=== PATIENT | female | born 1940 | race Caucasian/White ===

== ENCOUNTER 2020-03-22 18:23 | Inpatient (IN) | payer MEDICARE, BC ==
[~2020-03-22] VITALS: Ht 167.6 cm; Wt 43.4 kg
[2020-03-22] MEDS ORDERED: FENOFIBRATE160 MG PO (18:41)
[2020-03-22] MEDS ORDERED: METOPROLOL TART25 MG PO (18:42)
[2020-03-22] MEDS ORDERED: FUROSEMIDE40 MG PO (18:43)
[2020-03-22] MEDS ORDERED: SINGULAIR10 MG PO (18:44)
[2020-03-22] MEDS ORDERED: SYNTHROID88 MCG PO (18:44)
[2020-03-22] MEDS ORDERED: VITAMIN D5000 UNI1 PO (18:47)
[2020-03-22] MEDS ORDERED: RESTASIS EYE DR30 EA EACH EYE (18:54)
[2020-03-22 20:10] VITALS: BP 99/57
[2020-03-23 05:57] VITALS: BP 99/57
[2020-03-23 09:19] VITALS: BP 108/45
[2020-03-23 10:08] VITALS: BP 108/45
[2020-03-23 14:40] LABS: BASOPHILS 0.4 % (0-2); EOSINOPHILS 1.4 % (0-7); HEMATOCRIT 38.1 % (36.0-48.0); IMMATURE GRANULOCYTES 0.2 % (0-5); LYMPHOCYTES 9.7 % (15-50); MCH 28.5 pg (26.0-34.0); MCHC 31.5 g/dL (31.0-37.0); MCV 90.5 fL (80.0-100.0); MEAN PLATELET VOLUME 9.4 fL (7.4-10.4); MONOCYTES 9.7 % (2-11); NEUTROPHILS 78.6 % (40-80); PLATELET COUNT 340 10x3/uL (130-400); RBC 4.21 10x6/uL (4.00-5.40); RDW 13.3 % (11.5-14.5)
[2020-03-23 15:21] LABS: ALBUMIN 3.6 g/dL (3.4-5.0); ANION GAP 10.2 mmol/L (8-16); BILIRUBIN - TOTAL 0.58 mg/dL (0.2-1.3); CALCIUM 8.9 mg/dL (8.5-10.1); CARBON DIOXIDE 30.1 mmol/L (21.0-32.0); CHOL - HDL RATIO 3.1 ratio (2.3-4.1); CREATININE - SERUM 0.8 mg/dL (0.6-1.3); LDL-HDL RATIO 1.9 ratio (1.5-3.5); POTASSIUM - SERUM 3.3 mmol/L (3.5-5.1); PROTEIN - SERUM 6.9 g/dL (6.4-8.2); THYROID STIMULATING HORMONE 6.12 uIU/mL (0.36-3.74)
--- NOTE | 2020-03-23 16:28 | NUR ---
PT LAYING IN CHAIR LOOKING ABOVE HER WITH HANDS IN THE AIR. PT IS CONFUSED AND DISORIENTED. PT IS HAVING VISUAL HALLUCINATIONS. PT HAS NOT BEEN VERBAL THIS SHIFT. PT IS ON O2 AT 2 LPM. TOLERATING WELL. NO AGGRESSION NOTED. PT COMPLIANT WITH VITALS AND ASSESSMENT. CHAIR ALARM IN PLACE AND ACTIVE. WILL CONT PLAN OF CARE.
--- NOTE | 2020-03-23 19:50 | NUR ---
RECEIVED IN DAYROOM. SITTING CALMLY IN DAYROOM WITH PEERS AT HER SIDE. CALM AND COOPERATIVE WITH CARE AND ASSESSMENT. NO SIGNS OF AGGRESSION. REDIRECT AND REORIENT NEEDED. CONTINUES TO REST QUIETLY IN DAYROOM. CONTINUE PLAN OF CARE.
[2020-03-23 19:52] VITALS: BP 129/47
[2020-03-24 07:17] LABS: RAPID PLASMA REAGIN Non Reactive (Non Reactive)
[2020-03-24 08:13] LABS: BILIRUBIN NEGATIVE (NEGATIVE); GLUCOSE NEGATIVE (NEGATIVE); KETONE NEGATIVE (NEGATIVE); NITRITE POSITIVE (NEGATIVE); UROBILINOGEN NORMAL (NORMAL)
[2020-03-24 08:14] LABS: BACTERIA MANY /hpf (NEGATIVE); EPITHELIAL CELLS 0-5 /hpf (0-5); RED CELLS - URINE 0-5 /hpf (0-5); WHITE CELLS - URINE 25-50 /hpf (NEGATIVE)
[2020-03-24 08:36] VITALS: BP 118/63
--- NOTE | 2020-03-24 09:07 | PSY ---
PATIENT NAME:AG SAMUELS MEDICAL RECORD: [id number] : 42 LOCATION:[facility] Yoon6 ADMISSION DATE: 03/22/20 ACCOUNT: [id number] PSYCHIATRIC EVALUATION DATE OF EVALUATION: 03/23/20 IDENTIFYING DATA: The patient is 79 years old and she is admitted to the hospital on a voluntary basis. CHIEF COMPLAINT: Aggression. HISTORY OF PRESENT ILLNESS: The patient lives at home with her family. She has a history of dementia and has been aggressive with her family. Apparently, she has been having hallucinations. She is not fully oriented. She minimally interacts and she is almost nothing in the way of useful information. PAST MEDICAL HISTORY: Significant for hypothyroidism and hypertension. PAST PSYCHIATRIC HISTORY: Significant for dementia, which is clearly advanced. FAMILY HISTORY: Unknown. ALLERGIES: SULFA AND PENICILLIN. CURRENT MEDICATIONS: Include fenofibrate, metoprolol, furosemide, levothyroxine. SOCIAL HISTORY: The patient is single. She has a sister who is involved with her care. It is unknown if she has been in the past and she is not able to provide useful history. She denies drug or alcohol abuse and she denies smoking, which is probably correct or true, but she is so impaired, all of her responses to questions need to be checked with other sources. MENTAL STATUS EXAMINATION: The patient is awake, alert and oriented to person only. Her mood is flat. Her affect is constricted. Thought processes are very disorganized. Memory, concentration, and abstraction abilities are impaired and she denies that she would seek to harm herself or others as well as active psychotic symptoms. ASSETS: Supportive family members. LIABILITIES: Limited insight. DIAGNOSTIC IMPRESSION: AXIS I: Major neurocognitive disorder of the Alzheimer's type with behavioral disturbances. AXIS II: None. AXIS III: Hypertension, hypothyroidism, hyperlipidemia, chronic obstructive pulmonary disease. AXIS IV: Moderate. AXIS V: Global assessment of functioning is 30. PLAN: At this time, the patient is admitted to the hospital secondary to aggressive behavior associated with a dementing illness. She will be treated with both mood stabilizing and memory enhancing medications. Her long-term prognosis is guarded. TRANSINT:[id number] Voice Confirmation ID: [id number] DOCUMENT ID: [id number] NEW ESTRADA MD at 0907 CC: [id number] DICTATION DATE: 03/23/20 1627 CONFIDENTIAL SECRETARY: 03/23/202016 ADM IN [facility] [address] [facility], [facility]
--- NOTE | 2020-03-24 12:00 | NUR ---
Pt. sister Krupa called to get update on pts status. This nurse explained pt currently has uti from urine results. Invanz 1gm IM q [address] Osullivan. CXR ordered for SOB. CXR completed results pending at this time. pt on o2 at 3l via n/c per order. Pt sister thanked this nurse for update and provided favorite foods of pt. to help improve pts eating habits. Krupa stated pt likes, hamburgers, fries, pancakes, fruit and venkat. pudding." Sister also reported at home pt has to be reminded to eat." Info. reported to charge nurse and attending MD. Will cpoc.
--- NOTE | 2020-03-24 12:25 | NUR ---
NOTIFY DR. MATHIS IN REGARDS TO PT O2 SAT AT 91% ON 3 LPM. PT CONSTANTLY REMOVES O2 TUBING. STAFF REPLACES. UNABLE TO REDIRECT AND REORIENT. NEW ORDER: CHEST X-RAY. AND AWAITING ANTIBIOTIC ORDERS.
--- NOTE | 2020-03-24 12:38 | NUR ---
CALLED DR. JUDGE OFFICE ABOUT AN EYE GTT ORDER. SISTER WANTED TO KNOW DID WE REC'D THEM. NURSE CALLED TO OBTAIN SCRIPT. SHE STATED THAT THEY WANTED HER TO COME IN CAUSE SHE HADN'T BEEN IN OVER A YEAR OR SO. THEY TOOK A CALLBACK NUMBER AND ASKED FOR A LATER DATE. VERBALIZIED UNDERSTANDING.
--- NOTE | 2020-03-24 12:50 | NUR ---
NURSE SPOKE WITH HUMZA PARIS. SHE WANTED TO KNOW HOW SHE WAS DOING AND SHOULD WE COME GET HER SINCE SHE IS NOT WALKING AND NOT EATING. COULD I MAKE THE JUDGEMENT TO SEND HER HOME OR NOT. NURSE TOLD HER I COULD NOT MAKE THAT JUDGEMENT AND THAT THE DOCTOR WOULD HAVE TO MAKE THAT SAY. WE COULD DO WHAT WE CALL A A.M.A WHERE SHE COULD TAKE PT AGAINST MEDICAL ADVICE. SHE SAID SHE WANTED TO TALK TO THE DOCTOR. NURSE EXPLAINED THAT ITS SO EARLY IN THE ADMISSION THAT I WOULD GIVE HIM THE MESSAGE. SHE STATED SHE WOULD HAVE THE OTHER SISTER WOULD CALL AND SPEAK WITH US. NURSE VERBALIZIED UNDERSTANDING.
--- NOTE | 2020-03-24 13:13 | NUR ---
EYE GTT ORDER IS BEING FAXED OVER.
--- NOTE | 2020-03-24 13:39 | NUR ---
PREMA REID CALLED AND WANTED TO SPEAK WITH NURSE. NUMBER: [phone]. PASSCODE GIVEN. SHE INQUIRED HOW SHE WAS DOING, WHAT WAS GOING ON WITH THE UTI, AND WAS SHE EATING. NURSE EDUCATED HER ON HOW SHE WAS DOING. CONFUSED NOT UNDERSTANDING WHERE SHE IS OR ASKING FOR HER DOGS, SHE HAD TO HAVE MEDICATIONS PRIOR TO ADMISSION AND UPON ADMISSION FOR AGRESSION AND SOMETIMES IT TAKES SEVERAL DAYS TO LEAVE THE SYSTEM DEPENDING ON SIZE AND AGE. NURSE EXPLAINED THAT WE COULD NOT FORCE HER TO EAT BUT WE DO ENCOURAGE WITH SUPPLEMENTS AND MEDICATIONS TO STIMULATE EATING. WE DID NOT WANT TO FORCE EATING CAUSE THAT CAN LEAD TO OTHER COMPLICATIONS. ONCE THE MEDICATION EFFECTS WORE OFF THEN WE SHOULD SEE A INCREASE IN APPETITE. 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 SHE WANTED TO MAKE SURE WE HAVE THE CORRECT ALLERGIES IN THE SYSTEM. NURSE STATED SHE HAD STARTED ON INVANJ FOR UTI. SHE WANTED TO KNOW IF SHE WAS IN THE ACTIVITY ROOM THEN WHY WAS SHE DOWN THERE?" NURSE EXPLAINED SHE WAS WITH OUR OTHER PTS AND THAT ITS DIFFERENT THERAPY. SHE VERBALIZIED SOME UNDERSTANDING. SHE VERIFIED CODE STATUS WELL.
[2020-03-24 14:28] VITALS: Ht 167.6 cm; Wt 43.4 kg
[2020-03-24 17:48] LABS: BASOPHILS 0.3 % (0-2); EOSINOPHILS 1.3 % (0-7); HEMATOCRIT 38.3 % (36.0-48.0); HEMOGLOBIN 12.3 g/dL (12-16); IMMATURE GRANULOCYTES 0.1 % (0-5); LYMPHOCYTES 6.9 % (15-50); MCH 28.8 pg (26.0-34.0); MCHC 32.1 g/dL (31.0-37.0); MCV 89.7 fL (80.0-100.0); MEAN PLATELET VOLUME 9.3 fL (7.4-10.4); MONOCYTES 11.3 % (2-11); NEUTROPHILS 80.1 % (40-80); PLATELET COUNT 337 10x3/uL (130-400); RBC 4.27 10x6/uL (4.00-5.40); RDW 13.3 % (11.5-14.5)
[2020-03-24 18:08] LABS: ANION GAP 12.9 mmol/L (8-16); CALCIUM 9.2 mg/dL (8.5-10.1); CARBON DIOXIDE 30.8 mmol/L (21.0-32.0); POTASSIUM - SERUM 3.7 mmol/L (3.5-5.1)
[2020-03-24 18:09] LABS: CREATININE - SERUM 1.2 mg/dL (0.6-1.3)
[2020-03-24 20:27] VITALS: BP 112/51
--- NOTE | 2020-03-24 20:45 | NUR ---
RECEIVED PATIENT IN DAYROOM, SHE IS SLEEPING, EASILY AROUSED, NO AGGRESSION NOTED, HER MEDS HAD TO BE PLACED IN JELLO BEFORE SHE WOULD TAKE THEM. SHE IS CONFUSED, NO AGITATION NOTED, NO COMBATIVENESS NOTED. WILL FOLLOW POC
--- NOTE | 2020-03-25 09:51 | NUR ---
PT SISTER HUMZA CALLED TO CHECK ON HER. PASSCODE GIVEN. SHE WANTED AN UPDATE AND TO TELL US THAT SHE WAS TAKING AT HOME AN ASA 81 MG DAILY. WILL NOTIFY DOCTOR OF MEDICATON. ADDED TO THE HOME MED REC. NURSE GAVE AN UPDATE THAT SHE WAS TALKING MORE AND TAKING MEDS WHOLE. NURSE EXPLAINED THAT ONCE THE MEDICATION WAS OUT OF PTS SYSTEM SHE WOULD PERK UP. SHE VERBALIZIED UNDERSTANDING OF THE PROGRESS.
[2020-03-25] MEDS ORDERED: BAYER CHEWABLE81 MG PO (09:53)
[2020-03-25 11:19] VITALS: BP 112/59
--- NOTE | 2020-03-25 13:19 | PN ---
PATIENT:AG SAMUELS MEDICAL RECORD: [id number] LOCATION:[facility] Cason112 ADMISSION DATE: 03/22/20 PROGRESS NOTE DATE OF SERVICE: 03/24/2020 SUBJECTIVE: The patient's case was discussed with staff. She has no new complaint. OBJECTIVE: The patient is somewhat sedated. I think it is related to the p.r.n. medication she has received. She has been very agitated both with us and at the emergency room at [facility]. I do not have her on any scheduled medicines that would cause sedation. I am going to monitor her situation. She is not taking oral medicines and I will check some labs since she is not eating or drinking adequately. NTS:[id number] Voice Confirmation ID: [id number] DOCUMENT ID: [id number] NEW ESTRADA MD at 1319 CC: [id number] DICTATION DATE: 03/24/20 1647 METHOD CONSULTANT: 03/24/20 2347 ADM IN [place] [address] [place] [address]
--- NOTE | 2020-03-25 16:38 | NUR ---
ORIENTED TO SELF.NO AGGRESSION OBSERVED.IS COMPLIANT WITH STAFF AND MEDS.MEDS CRUSHED AND TAKEN IN PUDDING.APPETITE POOR,SLEEPING MOST OF THE DAY BUT DOES AROUSE EASILY FOR DIET AND MEDS.WILL CONTINUE WITH CURRENT PLAN OF CARE,MONITOR FOR CHANGES AND SAFETY.
[2020-03-25 20:09] VITALS: BP 106/52
--- NOTE | 2020-03-26 06:55 | NUR ---
PT. CALM, EATING WELL, COMPLIANT WITH MEDS. ON ATB. THERAPY FOR UTI
--- NOTE | 2020-03-26 11:08 | NUR ---
The patient is sleeping a lot, she is sitting in a raoul chair today. She has O2 @2 per NC. She has not shown any aggression today, but she has poor short term memory and she has poor insight into her situation. By hx she ambulates, but she has not ambulated today. Provide prescribed meds. The patient is compliant with meds crushed in pudding. Continue POC.
--- NOTE | 2020-03-26 12:57 | PN ---
PATIENT:AG SAMUELS MEDICAL RECORD: [id number] LOCATION:[facility]arl[facility]IA Cason112 ADMISSION DATE: 03/22/20 PROGRESS NOTE DATE OF SERVICE: 03/25/2020 SUBJECTIVE: The patient's case was discussed with staff. She has no new complaint. OBJECTIVE: The patient is not eating adequately. She has been started on Megace to assist with appetite stimulation. She is very impaired cognitively, but at this point, she is interacting in a socially appropriate way and not aggressive, so I am very much encouraged by this. ASSESSMENT: Dementia. PLAN: Current medicines have been reviewed and will be maintained. Long-term prognosis is guarded. TRANSINT:[id number] Voice Confirmation ID: [id number] DOCUMENT ID: [id number] NEW ESTRADA MD at 1257 CC: [id number] DICTATION DATE: 03/25/20 1710 DOLL WIGS HACKLER: 03/26/20 0221 ADM IN [facility] [address] [place] [address]
--- NOTE | 2020-03-26 14:06 | NUR ---
Nutrition Follow-up: Overall poor PO intake. Has to be fed. Noted Megace started; first dose given today. Diet: Regular, Ensure TID PO intake: 27% avg x 9 meals Wt: 95# (03/24) Labs reviewed Meds noted: Megace, vitamin D -Encourage PO intake and honor food preferences. -Monitor wt. -RD following.
[2020-03-26 16:17] VITALS: BP 102/59
[2020-03-26 19:57] VITALS: BP 109/55
--- NOTE | 2020-03-26 21:45 | NUR ---
B.) PT IS ALERT AND ORIENTED TO SELF. SHE HAS POOR INSIGHT INTO HER SITUATION. SHE IS RECEIVED IN THE DAYROOM IN A GERICHAIR. SHE IS ON 2L OF O2 VIA NC. SHE IS UNABLE TO AMBULATE ON HER OWN. I.) PROVIDED PM MEDICATIONS PRESCRIBED. REDIRECT OFTEN. R.) COMPLIANT WITH ALL MEDICATIONS. DIFFICULT TO REDIRECT. P.) WILL CONTINUE TO MONITOR.
[2020-03-27 10:10] VITALS: BP 105/47
--- NOTE | 2020-03-27 13:47 | NUR ---
The patient is awake at times, staff is assisting her with her meals and she is drinking fluids well. Checking her O2 sat q 2 hours and it is reading greater than 95% so far all day. She is confused and sometimes she says nonsensical things. Other times she can answer questions appropriately. Provide prescribed meds. The patient is compliant with meds. She is not ambulating and she is not feeding herself. She has not shown any aggression not even with hygiene care. She is in a gerichair. Continue POC.
--- NOTE | 2020-03-27 17:13 | NUR ---
The patient's daughter is here and she wants her Mother to wear her glasses and feed herself, she also wants staff to stand her and walk her. She said before she came to the hospital she was walking doing several laps in the house and she eats finger foods. Asked the patient's daughter "What changed?" She said she got a UTI and that made her change. Explained to the daughter that we will try to see if she will feed herself and also assist her to stand and ambulate.
[2020-03-27 20:00] VITALS: BP 110/52
--- NOTE | 2020-03-27 22:21 | NUR ---
B.) PT IS ALERT AND ORIENTED TO SELF ONLY. SHE [facility] HER O2 SAT 94 ON ROOM AIR. SHE IS CALM AND COOPERATIVE WITH STAFF. I.) PROVIDED PM MEDICATIONS PRESCRIBED. REDIRECT OFTEN. R.) COMPLIANT WITH ALL MEDICATIONS. EASY TO REDIRECT. P.) WILL CONTINUE TO MONITOR.
[2020-03-28 09:09] VITALS: BP 119/53
--- NOTE | 2020-03-28 11:40 | NUR ---
RECEIVED IN HALLWAY OUTSIDE OF NURSES STATION. CALM AND COOPERATIVE WITH CARE AND ASSESSMENT. NO AGGRESSION NOTED. REDIRECT AND REORIENT NEEDED. EATING AT THIS TIME. CONTINUE PLAN OF CARE.
--- NOTE | 2020-03-28 19:58 | NUR ---
RECEIVED IN DAYROOM. SITTING IN A CHAIR WITH PEERS AT HER SIDE. CALM AND COOPERATIVE WITH CARE AND ASSESSMENT. NO SIGNS OF AGGRESSION. REDIRECT AND REORIENT NEEEDED. CONTINES TO SIT CALMLY IN DAYROOM. CONTINUE PLAN OF CARE.
[2020-03-28 20:00] VITALS: BP 117/53
[2020-03-29 08:59] VITALS: BP 103/45
--- NOTE | 2020-03-29 12:00 | NUR ---
RECEIVED IN HALLWAY OUTSIDE OF NURSES STATION. CALM AND COOPERATIVE WITH CARE AND ASSESSMENT. NO AGGRESSION. REDIRECT AND REORIENT NEEDED. EATING AT THIS TIME. CONTINUE PLAN OF CARE.
--- NOTE | 2020-03-29 19:40 | NUR ---
RECEIVED IN DAYROOM. SITTING SERGIO CHAIR WITH PEERS AT HER SIDE. CALM AND COOPERATIVE WITH CARE AND ASSESSMENT. NO SIGNS OF AGGRESSION. REDIRECT AND REORIENT NEEDED. CONTINUES TO SIT CALMLY IN DAYROOM. CONTINUE PLAN OF CARE.
[2020-03-29 20:06] VITALS: BP 130/64
[2020-03-29 20:12] VITALS: BP 130/64
[2020-03-30 09:34] VITALS: BP 93/47
--- NOTE | 2020-03-30 09:50 | PN ---
PATIENT:AG SAMUELS MEDICAL RECORD: [id number] LOCATION:[facility]VIN Kamla112 ADMISSION DATE: 03/22/20 PROGRESS NOTE DATE OF SERVICE: 03/29/2020 SUBJECTIVE: The patient's case was discussed with staff. She has no new complaint. OBJECTIVE: The patient is sleeping well and she is eating marginally well. She is awake, alert and not having to use oxygen. ASSESSMENT: Dementia. PLAN: The patient has an advanced dementia. She is in need of 87-fjog-d-day supervision. At this point, the family is wanting to care for her, which is fine. The sisters are all her age or older, but they want to try to do this. I do not think they are going to be able to, but they want to try. The patient is fine with this, but she does not really understand what she is saying or agreeing to. The patient is better and will likely be discharged soon if this level of improvement continues. TRANSINT:[id number] Voice Confirmation ID: [id number] DOCUMENT ID: [id number] NEW ESTRADA MD at 0950 CC: [id number] DICTATION DATE: 03/29/20 1537 PIANO REGULATOR: 03/29/20 2326 ADM IN [place] [address] [place] [address]
--- NOTE | 2020-03-30 13:42 | NUR ---
RECEIVED IN HALLWAY OUTSIDE OF NURSES STATION. CALM AND COOPERATIVE WITH CARE AND ASSESSMENT. NO AGGRESSIVE BEHAVIOR. REDIRECT AND REORIENT NEEDED. SITTING IN GROUP AT THIS TIME. CONTINUE PLAN OF CARE.
[2020-03-30 16:00] LABS: HEMATOCRIT 38.4 % (36.0-48.0); HEMOGLOBIN 12.1 g/dL (12-16); MCH 28.6 pg (26.0-34.0); MCHC 31.5 g/dL (31.0-37.0); MCV 90.8 fL (80.0-100.0); MEAN PLATELET VOLUME 9.6 fL (7.4-10.4); PLATELET COUNT 344 10x3/uL (130-400); RBC 4.23 10x6/uL (4.00-5.40); RDW 13.5 % (11.5-14.5); WBC 12.9 10x3/uL (4.8-10.8)
[2020-03-30 16:08] LABS: ANION GAP 13.4 mmol/L (8-16); CALCIUM 9.3 mg/dL (8.5-10.1); CARBON DIOXIDE 26.9 mmol/L (21.0-32.0); CREATININE - SERUM 0.9 mg/dL (0.6-1.3); POTASSIUM - SERUM 4.3 mmol/L (3.5-5.1)
[2020-03-30 16:57] LABS: EOSINOPHILS 1 % (0-7); LYMPHOCYTES 5 % (15-50); MONOCYTES 3 % (2-11); NEUTROPHILS 91 % (40-80); PLATELET ESTIMATE NORMAL
[2020-03-30 20:43] VITALS: BP 116/63
--- NOTE | 2020-03-30 21:03 | NUR ---
RECEIVED IN DAYROOM. SITTING IN A CHAIR WITH PEERS AT HER SIDE. CALM AND COOPERATIVE WITH CARE AND ASSESSMENT. NO SIGNS OF AGGRESSION. REDIRECT AND REORIENT NEEDED. CONITUES TO SIT CALMLY IN DAYROOM. CONTINUE PLAN OF CARE.
[2020-03-31 09:10] VITALS: BP 115/58
[2020-03-31 10:50] LABS: BASOPHILS 0.2 % (0-2); EOSINOPHILS 0.7 % (0-7); HEMATOCRIT 38.2 % (36.0-48.0); HEMOGLOBIN 12.1 g/dL (12-16); IMMATURE GRANULOCYTES 1.3 % (0-5); LYMPHOCYTES 4.9 % (15-50); MCH 28.4 pg (26.0-34.0); MCHC 31.7 g/dL (31.0-37.0); MCV 89.7 fL (80.0-100.0); MEAN PLATELET VOLUME 9.6 fL (7.4-10.4); MONOCYTES 7.9 % (2-11); PLATELET COUNT 377 10x3/uL (130-400); RBC 4.26 10x6/uL (4.00-5.40); RDW 13.6 % (11.5-14.5); WBC 12.4 10x3/uL (4.8-10.8)
[2020-03-31 11:04] LABS: ALBUMIN 3.2 g/dL (3.4-5.0); ANION GAP 12.8 mmol/L (8-16); BILIRUBIN - TOTAL 0.49 mg/dL (0.2-1.3); CALCIUM 9.1 mg/dL (8.5-10.1); CARBON DIOXIDE 26.4 mmol/L (21.0-32.0); CREATININE - SERUM 0.9 mg/dL (0.6-1.3); POTASSIUM - SERUM 4.2 mmol/L (3.5-5.1); PROTEIN - SERUM 6.7 g/dL (6.4-8.2)
--- NOTE | 2020-03-31 12:00 | NUR ---
RECEIVED IN HALLWAY OUTSIDE OF NURSES STATION. CALM AND COOPERATIVE WITH CARE AND ASSESSMENT. NO AGGRESSIVE BEHAVIORS. REDIRECT AND REORIENT NEEDED. EATING AT THIS TIME. CONTINUE PLAN OF CARE.
--- NOTE | 2020-03-31 13:59 | NUR ---
NUTRITION FOLLOW UP: COMMENTS: Patient has been eating okay for the past 9 meals. Patient has been drinking about 1 to 2 supplements per day per I/O chart No recent weight changes. Patient currently on Megace appetite stimulant. DIET: Reg Mechanical Soft with Thin Liqids SUPPLEMENT: Ensure with Meals PO INTAKE: 62% avg for last 9 meals WEIGHT: 03/24- 95 lbs; 03/28- 95 lbs BM: x 1 on 03/28 SIG LABS: BUN-43(H), Albumin- 3.2(L), Vit D-27.1(L) SIG MEDS: Senokot, Vit D, Megace, Synthroid, Tricor RECOMMENDATIONS: -Continue current diet per PERSONAL CARE ASSISTANT -Continue Ensure TID -Assist with feeding if needed -Continue Megace appetite stimulant
--- NOTE | 2020-03-31 14:35 | PN ---
PATIENT:AG SAMUELS MEDICAL RECORD: [id number] LOCATION:[facility] Cason112 ADMISSION DATE: 03/22/20 PROGRESS NOTE DATE OF SERVICE: 03/30/2020 SUBJECTIVE: The patient's case was discussed with staff. She has no new complaint. OBJECTIVE: The patient is severely impaired cognitively. She is denying any thoughts of harming herself or others. ASSESSMENT: Dementia. PLAN: The patient is eating better. I would attribute this to the Lexapro. I am going to check some baseline labs to make sure that she is not becoming metabolically compromised. TRANSINT:[id number] Voice Confirmation ID: [id number] DOCUMENT ID: [id number] NEW ESTRADA MD at 1435 CC: [id number] DICTATION DATE: 03/30/20 1530 MATHEMATICAL TECHNICIAN: 03/30/20 2347 ADM IN [facility] [address] [place] [address]
[2020-03-31 20:37] VITALS: BP 120/57
--- NOTE | 2020-04-01 00:27 | NUR ---
B) Patient is alert and oriented to person, calm and quiet, keeping to herself, responds when spoken to, I) Administered scheduled medications as ordeered, R) Mediation compliant, withdrawn P) Continue plan of care.
--- NOTE | 2020-04-01 09:01 | NUR ---
The patient is awake and she is eating and drinking this am. Staff state that PT came yesterday and offered to walk her with a walker, but the patient did not even try to reach for the walker. She can answer yes and no and she says a few things, but mostly she does not talk. She has not shown any aggression today. Provide prescribed meds. The patient is compliant with meds. Continue POC.
[2020-04-01 09:22] VITALS: BP 120/54
--- NOTE | 2020-04-01 09:30 | NUR ---
SW SPOKE TO PT'S SISTER, PREMA, ABOUT PT'S DECLINE AND COGNITIVE CONDITION. SW APPROACHED THE SUBJECT OF HOSPICE AND EXPRESSED CONCERNS OF PT NOT EATING OR DRINKING WELL ENOUGH TO SUSTAIN. PT'S SISTER GAVE PERMISSION FOR A HOSPICE ASSESSMENT.
--- NOTE | 2020-04-01 12:16 | PN ---
PATIENT:AG SAMUELS MEDICAL RECORD: [id number] LOCATION:ASHVIN ArmendarizEarl112 ADMISSION DATE: 03/22/20 PROGRESS NOTE DATE OF SERVICE: 03/31/2020 SUBJECTIVE: The patient's case was discussed with staff. She has no new complaint. OBJECTIVE: The patient is only oriented to person. She is sedated but not taking or receiving anything that should cause sedation. She has some abnormal labs. White count is elevated and a BUN that is elevated. This is being addressed by internal medicine. From a behavioral standpoint, I have no behaviors to address. From a dementia standpoint, there is little I can do. The dementia is advanced. It is clear she is in need of 67-ykzy-e-day supervision. Her sisters have an unrealistic expectation that she is going to get dramatically better and be able to go home and live independently, that is not an option. The best case scenario would be management in a snf. If her situation does not show improvement, particularly with the lack of oral intake, hospice, or some sort of palliative care measures would be in order. TRANSINT:[id number] Voice Confirmation ID: [id number] DOCUMENT ID: [id number] NEW ESTRADA MD at 1216 CC: [id number] DICTATION DATE: 03/31/20 1504 BRICK PAVER: 04/01/20 0016 ADM IN [place] [id number] [place] [id number]
[2020-04-01 13:29] LABS: BASOPHILS 0.3 % (0-2); EOSINOPHILS 1.2 % (0-7); HEMATOCRIT 40.4 % (36.0-48.0); HEMOGLOBIN 12.7 g/dL (12-16); IMMATURE GRANULOCYTES 1.1 % (0-5); LYMPHOCYTES 6.4 % (15-50); MCH 28.6 pg (26.0-34.0); MCHC 31.4 g/dL (31.0-37.0); MEAN PLATELET VOLUME 9.9 fL (7.4-10.4); MONOCYTES 5.8 % (2-11); NEUTROPHILS 85.2 % (40-80); PLATELET COUNT 374 10x3/uL (130-400); RBC 4.44 10x6/uL (4.00-5.40); RDW 13.5 % (11.5-14.5); WBC 11.6 10x3/uL (4.8-10.8)
[2020-04-01 13:50] LABS: ALBUMIN 3.2 g/dL (3.4-5.0); ANION GAP 11.4 mmol/L (8-16); BILIRUBIN - TOTAL 0.31 mg/dL (0.2-1.3); CALCIUM 9.4 mg/dL (8.5-10.1); CARBON DIOXIDE 27.8 mmol/L (21.0-32.0); CREATININE - SERUM 0.9 mg/dL (0.6-1.3); POTASSIUM - SERUM 4.2 mmol/L (3.5-5.1); PROTEIN - SERUM 6.8 g/dL (6.4-8.2)
--- NOTE | 2020-04-01 13:55 | NUR ---
NURSE INSERTED 20 G IV INTO RIGHT FOREARM. 1 ATTEMPT. PT TOLERATED WELL. WILL ADMINISTER IV FLUID AT THIS TIME. NAME, DATE AND INTIAL.
--- NOTE | 2020-04-01 15:31 | NUR ---
One of the patient's sister called and asked how she is doing. Let her know that she is not eating and drinking well and the nurse practitioner wants to start an IV on her and give her a little bit of oxygen to try to help her perk up. She is lethargic and she is not eating, although, she is drinking well today. She does not assist to stand and she will not walk.
--- NOTE | 2020-04-01 17:05 | PN ---
PATIENT:AG SAMUELS MEDICAL RECORD: [id number] LOCATION:ASHVIN Cason112 ADMISSION DATE: 03/22/20 PROGRESS NOTE DATE OF SERVICE: 04/01/2020 SUBJECTIVE: The patient's case was discussed with staff. She has no new complaint. OBJECTIVE: The patient is withdrawn, isolated and blunted. ASSESSMENT: Dementia. PLAN: It looks as though she is going to require IV support secondary to us being able to get adequate food and water in her. This patient's dementia is advanced. She is not on any medications that would cause her to be sedated or withdrawn. The patient's sisters have unrealistic expectations about her going home and living independently. In fact, we are so far apart on this, I am going to view it as a treatment success if I can keep her from ending up in hospice. For the time being, medicine is going to hydrate her. TRANSINT:[id number] Voice Confirmation ID: [id number] DOCUMENT ID: [id number] NEW ESTRADA MD at 1705 CC: [id number] DICTATION DATE: 04/01/20 1238 EDUCATION RESEARCH ANALYST: 04/01/20 1615 ADM IN [facility] [address] [place] [address]
[2020-04-01 20:32] VITALS: BP 116/78
--- NOTE | 2020-04-01 22:35 | NUR ---
RECEIVED PATIENT IN DAYROOM, LYING IN GERICHAIR, IV FLUIDS INFUSING TO RIGHT WRIST WITHOUT DIFFICULTY, IV SITE WITHOUT REDNESS, EDEMA OR WARMTH. SHE IS CONFUSED, SHE HAS HER EYES CLOSED MOST OF THE TIME. SHE TOOK HER MEDS IN PUDDING. NO SIDE EFFECTS OR ADVERSE REACTION NOTED FROM MEDICATION.
[2020-04-02 06:43] LABS: ALBUMIN 2.7 g/dL (3.4-5.0); ANION GAP 10.3 mmol/L (8-16); BILIRUBIN - TOTAL 0.3 mg/dL (0.2-1.3); CREATININE - SERUM 0.8 mg/dL (0.6-1.3); POTASSIUM - SERUM 4.3 mmol/L (3.5-5.1); PROTEIN - SERUM 6.4 g/dL (6.4-8.2)
[2020-04-02 07:54] LABS: BASOPHILS 0.3 % (0-2); EOSINOPHILS 2.1 % (0-7); HEMATOCRIT 35.5 % (36.0-48.0); HEMOGLOBIN 11.4 g/dL (12-16); IMMATURE GRANULOCYTES 2.2 % (0-5); LYMPHOCYTES 7.6 % (15-50); MCH 28.7 pg (26.0-34.0); MCHC 32.1 g/dL (31.0-37.0); MCV 89.4 fL (80.0-100.0); MEAN PLATELET VOLUME 10.1 fL (7.4-10.4); NEUTROPHILS 80.8 % (40-80); PLATELET COUNT 368 10x3/uL (130-400); RBC 3.97 10x6/uL (4.00-5.40); RDW 13.3 % (11.5-14.5); WBC 11.6 10x3/uL (4.8-10.8)
[2020-04-02 08:52] VITALS: BP 107/57
--- NOTE | 2020-04-02 09:38 | NUR ---
SW SPOKE WITH PT'S OTHER SISTER, HUMZA, TO DISCUSS PT'S CONDITION. PT'S FAMILY WANTS HOSPICE HOME CARE NOW BECAUSE THEY HAVE A COMFORT HOME. SW WILL DO REFERRAL.
--- NOTE | 2020-04-02 10:40 | NUR ---
The patient's sisters have spoken to trinh Alex SW this am. The patient is lethargic, she is not eating, not drinking. Staff assisted her to drink an ensure. She has her IV infusing in her right wrist. She denies any pain or discomfort, but she has not had a BM, today makes the day. Emely Gao APN states she will order meds to assist her to have a BM today. Provide prescribed meds. The patient is compliant with crushed meds. Continue POC.
[2020-04-02] MEDS ORDERED: DONEPEZIL HCL5 MG PO (12:00)
[2020-04-02] MEDS ORDERED: LOPRESSOR25 MG PO (12:00)
[2020-04-02] MEDS ORDERED: DULCOLAX5 MG PO (12:01)
[2020-04-02] MEDS ORDERED: Megace ES [CHEMO] PO (12:01)
[2020-04-02] MEDS ORDERED: Senokot TAB PO (12:01)
[2020-04-02] MEDS ORDERED: SODIUM CHLORIDE 5% EACH EYE (12:01)
[2020-04-02] MEDS ORDERED: Xylocaine-MPF 1% IM (12:01)
[2020-04-02] MEDS ORDERED: FLORAJEN3 CAPS460 MG PO (12:01)
[2020-04-02] MEDS ORDERED: LINZESS145 MCG PO (12:01)
[2020-04-02] MEDS ORDERED: VITAMIN D PO (12:02)
--- NOTE | 2020-04-02 12:23 | NUR ---
Swabbed the patient's nares for COVID testing. Sending to the lab now.
--- NOTE | 2020-04-02 12:33 | NUR ---
Offered and assisted the patient to eat her lunch. She would not open her mouth enough to take a bite. She said she doesn't feel like eating. She took two bites of fish, one bite of carrot, one bite of mashed potatos, two bites of chocolate pudding and a few sips of chocolate ensure. She says she just doesn't feel like herself, but says "It'll come back." Continue to monitor mood and behavior.
--- NOTE | 2020-04-02 17:45 | NUR ---
pt family called to see how she was doing. passcode given. nurse reported that staff has pt in bed due to staff administering enema to assist with BM. family states that she does have problems with bowel movements. family asked about her going into hospice. nurse explained that trinh social media project manager spoke with her about hospice and when its end stage sometimes its suggested. nurse stated trinh had spoke with their sister about her going to hospice possibly tommorrow. she stated she had spoken to her sister about hospice but wanted to know more details. nurse educated at this time she does have her eyes open per family member question. pt does have current IV access but that does not mean that will perk her up back to the state she was previously in. she did not understand verbalizied understanding of situation. nurse attempted to explain that pt was not eating and drinking, yes the not eating could be related to pt being unable to move a bowel movement. that has been previously happening since admission. she thanked nurse.
--- NOTE | 2020-04-02 19:03 | NUR ---
hospice nurse came to eval pt for admission.
[2020-04-02 20:00] VITALS: BP 118/68
--- NOTE | 2020-04-02 20:08 | NUR ---
RECEIVED PATIENT IN HER ROOM, SLEEPING, NO DISTRESS NOTED, IV FLUIDS INFUSING WITHOUT DIFFICULTY, IV SITE WITHOUT REDNESS, NO EDEMA, NO WARMTH. COMPLIANT WITH MEDS, JUST RECEIVED A PHONE CALL FROM HOSPICE HOME [facility] SAYING THAT SHE WAS ACCEPTED A PATIENT. PATIENT IS IN NO DISTRESS. WILL FOLLOW POC
--- NOTE | 2020-04-03 06:48 | NUR ---
PATIENT HAD VERY SMALL AMOUNT OF LOOSE STOOL.
[2020-04-03 09:12] VITALS: BP 123/63
--- NOTE | 2020-04-03 11:55 | NUR ---
irvin at inpatient hospice called and wanted an update on about how much longer it would be before we could tranfer pt. nurse stated we were still awaiting covid results and the results usually came back after lunch time. she gave me a number to reach and a number to call report as well. nurse stated she would give a call as soon as new information was avaliable.
--- NOTE | 2020-04-03 12:08 | NUR ---
nurse spoke with sister katya. passcode given. she inquired about how her sister was doing and when she would leaving. nurse stated she was leaving to inpatient hospice and that as soon as her covid results were back we would be EMS tranferring her. she stated that she was on her way from [place] and was wondering if she could see the pt or hold the pt until 5 p.m. and if she was going to hospice could a cooker soda come and do the last rights on her. nurse educated that would be possible if needed. she was leaving soon to go to hospice care and nurse was unsure if the cooker soda could be here be before she leaves. she has been discharged. sister stated she could not see her until tommorrow when she went to [place]. she stated she would be at the hospital here at 2:30 p.m. nurse stated visitation was at 3:30. she stated she was aware but wanted to be here. she asked nurse if this condition was short or intermediate teacher. nurse educated that she was end stage dementia and that disease only progressed. she did not verbalizied understanding. she asked if she was eating or drinking. nurse stated she was not eating and drinking a little of the ensures. she sounded hopeful that the pt could make a full recovery. she gave the nurse her name and number to call when an update came avaliable. katya [phone]. nurse will call when more inforamation was avaliable.
--- NOTE | 2020-04-03 13:06 | NUR ---
LETHARGIC.TAKES AM MEDS CRUSHED IN PUDDING.APETITE VERY POOR,REQUIRES SPOON FEEDING PER STAFF.TOTAL CARE PROVIDED.TO DISCHARGE TO [facility] IN [place].WILL CONTINUE WITH CURRENT PLAN OF CARE,MONITOR FOR CHANGES AND SAFETY.
--- NOTE | 2020-04-03 16:59 | NUR ---
PT FAMILY HERE TO VISIT NURSE ASKED HER TO PLEASE LEAVE DUE TO UNSAFE CONDITIONS WITH ANOTHER SITUATION. SHE DID NOT UNDERSTAND WHY SHE HAD TO EXIT THE UNIT. SHE STATED TEARFULLY THAT THIS WAS WRONG AND SHE WAS GOING TO BE CALLING ON SUNDAY ABOUT THIS. NURSE EXPRESSED APOLOGY ABOUT SITUATION BUT WAS ATTEMPTING TO DO WHAT WAS SAFE FOR THE VISITORS AND PATIENTS. SHE DID NOT VERBALIZIE UNDERSTANDING.
--- NOTE | 2020-04-03 17:09 | NUR ---
NURSE CONTACTED LAB ABOUT PENDING COVID-19 SARS RESULTS. BIKE ASSEMBLER DID NOT KNOW WHY RESULTS WERE NOT SHOWING. LAB STATED THEY WOULD CALL BACK WITH SOME RESULTS.
--- NOTE | 2020-04-03 17:15 | NUR ---
covid results are negative will resume discharge.
--- NOTE | 2020-04-03 17:25 | NUR ---
NURSE ATTEMPTED TO CALL REPORT INTO [facility] WITH NO ANSWER. WILL ATTEMPT TO CALL AGAIN FOR REPORT.
--- NOTE | 2020-04-03 17:30 | NUR ---
nurse called hospice home care to start the discharge process from unit. covid results faxed over. will call report.
--- NOTE | 2020-04-03 17:46 | NUR ---
EMS called and requested transport to hospice home care. will be 45 mins to an hour.
--- NOTE | 2020-04-03 19:07 | NUR ---
CALLED REPORT TO [facility]. NURSE FAXED PAPERWORK THIS A.M. NURSE FAXED RECENT CHEST X-RAY, ABD X-RAY, AND COVID TEST RESULTS TO NUMBER PROVIDED [phone]. OR FAX TO [phone]. NURSE GAVE CALLBACK NUMBER FOR FURTHER QUESTIONS. NURSE GAVE EMS TIMES AND PT WAS STILL HERE AT THIS TIME. WHEN SHE LEAVES STAFF WOULD CALL [facility].
[2020-04-03 19:32] VITALS: BP 102/55
--- NOTE | 2020-04-03 19:37 | NUR ---
FAMILY MEMBER CALLED AND WANTED TO CHECK ON PT AT THIS TIME. PASSCODE GIVEN. NURSE TOLD [facility] WERE WAITING EMS TO TRANSPORT PT TO [facility] [place]. SHE STATED "WELL I DONT APPERICATE HAVING TO LEAVE WHEN MY SISTER WAS UPSET AND CRYING. I DONT UNDERSTAND WHY THEY COULD JUST SEND THAT PATIENT THAT WAS ACTING UP SOMEWHERE. I HAD TO LEAVE AND I DIDNT LIKE IT. NURSE STATED "I WAS THE ONE TO MAKE THE CALL FOR THE SAFETY OF THE VISITORS, STAFF AND OTHER PATIENTS. I COULD NOT TAKE THE PATIENT INTO THE HALLWAY WHERE THE VISITORS AND OTHER PTS WERE AT THAT TIME. SO I MADE HAD TO UNFORTUNATELY HAD TO MAKE THE CALL FOR THE VISITORS TO LEAVE AND I AGAIN APOLOGIZE." SHE STATED THAT SHE DID NOT APPERICATE IT AND I DONT SEE WHY I HAD TO BE THE ONE TO LEAVE. IT JUST ISNT RIGHT. IT LOOKED LIKE SHE HADNT HAD ANYTHING TO DRINK. HER MOUTH WAS MILKY AND DRY. IS SHE EATING?" NURSE EDUCATED HER THAT PT WAS ONLY DRINKING ENSURES AT THIS TIME. SHE WAS NOT EATING ANY DINNER AND THE ENSURE WAS THE MILKY SUSTANCE THAT WAS ON HER MOUTH. SHE IS REFUSING TO DRINK WHEN OFFERED. WE CAN NOT MAKE PT DRINK. SHE DID NOT VERBALIZED UNDERSTANDING AND NURSE EDUCATED THAT SHE WAS DISCHARGING [facility]. SHE STATED WELL OKAY.
--- NOTE | 2020-04-03 19:46 | NUR ---
RECEIVED PATIENT IN DAYROOM, SITTING CALMLY, CONFUSED, QUIET. PATIENT IS BEING DISCHARGED TO [facility] ON THIS SHIFT. HER FAMILY IS AWARE. WILL FOLLOW POC
--- NOTE | 2020-04-05 13:41 | DS ---
PATIENT:AG SAMUELS :42 MEDICAL RECORD: [id number] DISCHARGE SUMMARY ADMISSION DATE: 03/22/20 DISCHARGE DATE: 04/03/20 DATE OF ADMISSION: 03/22/2020 DATE OF DISCHARGE: 04/03/2020 IDENTIFYING DATA: This is a 79-year-old patient, she was admitted to the hospital on a voluntary basis and she appeared older than her stated age. Her chief complaint was aggressive behavior with family and a history of dementia. HISTORY OF PRESENT ILLNESS: This patient lives at home with her family. She had a history of dementia and had been aggressive with her family. Apparently, they felt that she was having hallucinations and she was not fully oriented and they brought her to the Emergency Room. HOSPITAL COURSE: The patient was admitted to the hospital and evaluated from both a medical, psychological, and social standpoint. She was found to have an advanced dementia, was treated with some medications. The patient was not eating. The patient did not show any improvement and was subsequently transitioned out of the hospital with hospice in the care of family. 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 AXIS II: None. AXIS III: Hypertension, hypothyroidism, hyperlipidemia, chronic obstructive pulmonary disease. AXIS IV: Moderate. AXIS V: Global assessment of functioning is 30. PLAN: At the time of discharge, the patient was relatively in good behavioral control. There is no evidence of acute or direct dangerousness. She was placed in environment with 24-hour care of her family and with assistance of hospice. Followup is to be with her primary care physician. TRANSINT:[id number] Voice Confirmation ID: [id number] DOCUMENT ID: [id number] Dictated By: JOSEPHINE MARS I have interviewed/examined the above patient and agree with these documented findings. NEW ESTRADA MD at 1341 CC: [id number] DICTATION DATE: 04/04/20 1659 CHEMIST ENZYMES: 04/05/20 0244 DIS IN 04/03/20 [facility] [address] [place] [address]
== END 2020-04-03 20:30 | disposition hospice, inpatient (51) | DRG 57 ==
LOC: D.PSYCH 18:23
PROVIDERS: Family Medicine; ADMIT Psychiatry & Neurology Psychiatry; ATTEND Psychiatry & Neurology Psychiatry
DX: G30.1 Alzheimer's disease with late onset (principal); F02.81 Dementia in other diseases classified elsewhere, unspecified severity, with behavioral disturbance; N39.0 Urinary tract infection, site not specified; I10 Essential (primary) hypertension; E03.9 Hypothyroidism, unspecified; E78.5 Hyperlipidemia, unspecified; E78.00 Pure hypercholesterolemia, unspecified; E55.9 Vitamin D deficiency, unspecified; J44.9 Chronic obstructive pulmonary disease, unspecified; R13.10 Dysphagia, unspecified; E86.0 Dehydration; K59.00 Constipation, unspecified; D72.829 Elevated white blood cell count, unspecified